=== PATIENT | female | born 1940 | race Caucasian/White ===

== ENCOUNTER → 2019-07-20 12:08 | Outpatient (CLI) | payer MEDICARE, SELFPAY ==
--- NOTE | 2019-07-20 12:18 | MRI_ITS ---
STUDY: BILATERAL BREAST MR WITHOUT AND WITH CONTRAST REASON FOR EXAM: Female, 79 years old. Left breast cancer diagnosed June 14, 2019 Ultrasound-guided biopsy. TECHNIQUE: Multi-sequence multi-echo imaging of both breasts was performed with a dedicated breast coil. T1-weighted and T2-weighted images were performed before the administration of contrast. T1-weighted images were also performed after the administration of IV Dotarem 10 without complications. COMPARISON: Prior mammogram dated June 14, 2019 and left breast ultrasound on the same day. FINDINGS: RIGHT BREAST: The breast tissue is fatty with minimal background enhancement. At the 3:00 position of the left breast there is an irregular enhancing mass corresponding to the mammographic and ultrasonographic abnormality. The enhancing mass extends to the superficial subcutaneous tissue laterally (axial series 96243 image 137). There are small satellite enhancing lesions, one superiorly measuring 8 mm in diameter and one laterally measuring 9 mm in diameter. The total area of enhancement is approximately 4.8 cm x 1.2 cm x 4 cm. There is skin retraction and skin thickening anteriorly and laterally adjacent to the mass. Multiple enlarged lymph nodes in the left axilla, the largest of which measures approximately 1.7 cm x 1.3 cm (axial series 31897 image 57/220). This finding is highly suspicious for axillary involvement of tumor. LEFT BREAST: The breast tissue is fatty with minimal background enhancement. There are no abnormal enhancing masses or areas of non-mass enhancement in the left breast. There are no enlarged or abnormal lymph nodes. There is no abnormality in the visualized regions of the chest or liver. MRI/Breast Bilateral W/O and W IMPRESSION: Large irregular enhancing mass at the 3:00 position of the left breast corresponding to the abnormality seen on mammogram and ultrasound. Total area of enhancement is approximately 4.8 cm x 1.2 cm x 4 cm. Skin retraction and skin thickening superficial to the mass laterally. Multiple enlarged left axillary lymph nodes highly suspicious for axillary involvement by tumor. CATEGORY: BIRADS Category 6: Known Biopsy-Proven Malignancy - Appropriate Action Should Be Taken. A letter regarding these results will be sent to the patient by the facility within 30 days. Electronically Signed: Shaquille Torres MD at 16:52 EST , Service support ,
[2019-07-20 13:20] LABS: CREATININE FINGERSTICK 0.9 mg/dL (0.55-1.02); EGFR FINGERSTICK > 60.0000 mL/min (>60)
== END ==
PROVIDERS: Family Provider Family Medicine; PCP Family Medicine
DX: C50.912 Malignant neoplasm of unspecified site of left female breast (principal)
CPT/HCPCS: 77049; A9575; A4216; C8908

== ENCOUNTER 2021-11-18 13:40 | Outpatient (CLI) | payer MEDICARE, SELFPAY ==
[2021-11-19 10:08] LABS: Erythrocyte Sedimentation Rate 35 mm/hr (0-30)
== END 2021-11-18 23:59 | disposition home or self-care (01) ==
PROVIDERS: PCP Family Medicine; Referring Provider Internal Medicine Rheumatology; Visit Provider Internal Medicine Rheumatology
DX: M31.6 Other giant cell arteritis (principal); F02.80 Dementia in other diseases classified elsewhere, unspecified severity, without behavioral disturbance, psychotic disturbance, mood disturbance, and anxiety; G30.9 Alzheimer's disease, unspecified; I73.9 Peripheral vascular disease, unspecified; I48.91 Unspecified atrial fibrillation; G40.909 Epilepsy, unspecified, not intractable, without status epilepticus; C50.912 Malignant neoplasm of unspecified site of left female breast; M16.0 Bilateral primary osteoarthritis of hip; I10 Essential (primary) hypertension; Z79.52 Long term (current) use of systemic steroids
CPT/HCPCS: 36415; 85652; 86140

== ENCOUNTER → 2022-07-23 | Outpatient (CLI) | payer MEDICARE, SELFPAY ==
[2022-07-23 15:37] LABS: Erythrocyte Sedimentation Rate 10 mm/hr (0-30)
[2022-07-23 15:54] LABS: CRP 9.11 mg/L (0.0-3.0)
== END | disposition home or self-care (01) ==
LOC: MTLAB 12:38
PROVIDERS: PCP Family Medicine; Referring Provider Internal Medicine Rheumatology; Visit Provider Internal Medicine Rheumatology
DX: M31.6 Other giant cell arteritis (principal); Z79.52 Long term (current) use of systemic steroids
CPT/HCPCS: 36415; 85652; 86140

== ENCOUNTER → 2023-04-16 | Outpatient (CLI) | payer MEDICARE, SELFPAY ==
[2023-04-16 17:26] LABS: Mucous, Urine 0 SEEN /hpf (<or=2+); Red Blood Cells-Urine 0 SEEN /hpf (0-5)
[2023-04-16 17:32] LABS: Color, Urine Yellow (Yellow); Glucose, Dipstick Normal (Normal); Ketone-Dipstick 15 mg/dl (Negative); Leukocyte Esterase-Dipstick 100 /ul (Negative); Nitrite-Dipstick Negative (Negative); Occult Blood-Urine 10 /ul (Negative); Protein-Dipstick 30 mg/dl (Negative); Urine Clarity Cloudy (Clear); Urine Urobilinogen 1 mg/dl (Normal)
[2023-04-16 17:37] LABS: Urine Bilirubin Dipstick 1 mg/dL (Negative)
[2023-04-16 17:38] LABS: Bacteria 1+ /hpf (None Seen); Squamous Epithelial Cells - UA 0-5 SEEN /hpf (5-10); White Blood Cells 5-10 SEEN /hpf (0-5)
== END | disposition home or self-care (01) ==
PROVIDERS: PCP Family Medicine; Visit Provider Family Medicine
DX: R39.9 Unspecified symptoms and signs involving the genitourinary system (principal); N39.0 Urinary tract infection, site not specified
CPT/HCPCS: 81001; 87086; 87088